=== PATIENT | male | born 1990 | race Caucasian/White ===

== ENCOUNTER 2022-01-31 09:08 | Outpatient (CLI) | payer BC | END 2022-01-31 09:09 | disposition home or self-care (01) | LOC: BICRAD 09:08 | PROVIDERS: ATTEND Nurse Practitioner Family | DX: R10.84 Generalized abdominal pain (principal) | CPT/HCPCS: 74018 ==

== ENCOUNTER 2023-07-03 10:43 | Outpatient (CLI) | payer BC | END 2023-07-03 10:44 | disposition home or self-care (01) | LOC: BICRAD 10:43 | PROVIDERS: ATTEND Nurse Practitioner Family | DX: S39.92XD Unspecified injury of lower back, subsequent encounter (principal); M51.37 Other intervertebral disc degeneration, lumbosacral region | CPT/HCPCS: 72072; 72100; 72220 ==